=== PATIENT | male | born 1970 | race Caucasian/White ===

== ENCOUNTER 2022-08-07 19:18 | Observation (INO) | payer MEDICAID ==
[2022-08-07 19:49] LABS: Glucose,Whole Blood 100 mg/dL (70-110)
[2022-08-07 20:36] LABS: Albumin 4.3 g/dL (3.5-5.0); Calcium 9.3 mg/dL (8.4-10.2); Magnesium 2.1 mg/dL (1.6-2.3); Potassium 4.1 mmol/L (3.5-5.1); Total Bilirubin 0.8 mg/dL (0.2-1.3); Total Protein 7.1 g/dL (6.3-8.2)
[2022-08-07 20:45] LABS: INR 0.9 (<1.2); Partial Thromboplastin Time 21.2 sec (22.0-30.0)
[2022-08-07] MEDS ORDERED: NITROGLYCERIN OINT 1 INCH/GM PACKET TOPICAL STA (20:46)
[2022-08-07] MEDS ORDERED: SODIUM CHLORIDE 0.9% 1,000 ML IV STA (20:46)
[2022-08-07] MEDS ORDERED: SODIUM CHLORIDE 0.9% 1,000 ML IV ONE (20:46)
[2022-08-07 21:48] LABS: Basophils # (A) 0.1 k/uL (0-0.2); Basophils % (A) 1 %; Eosinophils # (A) 0.1 k/uL (0-0.7); Eosinophils % (A) 2 %; HCT 46.1 % (39.0-53.0); HGB 16.3 gm/dL (13.0-17.5); Lymphocytes % (A) 38 %; MCH 32.8 pg (25.0-35.0); MCHC 35.2 g/dL (31.0-37.0); MCV 93.1 fL (80.0-100.0); Mean Platelet Volume 9.5; Monocytes # (A) 0.5 k/uL (0-1.0); Monocytes % (A) 6 %; Neutrophils # (A) 4.1 k/uL (1.3-7.7); Neutrophils % (A) 51 %; Platelet Count 218 k/uL (150-450); RBC 4.96 m/uL (4.30-5.90); RDW 13.4 % (11.5-15.5)
--- NOTE | 2022-08-07 22:40 | XR ---
EXAMINATION TYPE: XR chest 1V DATE OF EXAM: 08/07/2022 COMPARISON: NONE HISTORY: Chest pain TECHNIQUE: Single view FINDINGS: Heart and mediastinum are normal. Lungs are clear. Diaphragm is normal. Bony thorax is inta ct. There are chest leads. IMPRESSION: Normal chest. Normal heart
[2022-08-07] MEDS ORDERED: NITROGLYCERIN SL TABS 0.4 MG TAB SUBLINGUAL PRN (22:55)
[2022-08-07] MEDS ORDERED: HEPARIN SODIUM 1,000 UN/ML (10ML VL) IV ONE (22:55)
[2022-08-07] MEDS ORDERED: fentaNYL (PF) 50 MCG/ML 2 ML AMP IVP PRN (22:57)
[2022-08-07] MEDS ORDERED: fentaNYL (PF) 50 MCG/ML 2 ML AMP IV STA (22:57)
--- NOTE | 2022-08-07 22:58 | ED ---
Chest Pain HPI - General Chief Complaint: Chest Pain Stated Complaint: Chest Pain Time Seen by Provider: 08/07/22 20:42 Source: patient Mode of arrival: ambulatory Limitations: no limitations - History of Present Illness Initial Comments: This patient is a 52-year-old man who presents with intermittent chest pains of been coming and going over the past week. He states there may be some exertional component. The pain is in the left lower chest. He has occasionally had pain to the neck. There has been some occasional diaphoresis. Patient took nitroglycerin today without change in the pain. Patient also did take aspirin. MD Complaint: chest pain -: days(s) Onset: during rest Pain Location: left chest Pain Radiation: neck, jaw/teeth Severity: moderate Quality: aching Consistency: intermittent Improves With: nothing Worsens With: nothing Treatments Prior to Arrival: aspirin, nitroglycerin - Related Data Home Medications Medication Instructions Recorded Confirmed Ascorbic Acid [Vitamin C] 1,000 mg PO DAILY 08/07/22 08/07/22 Aspirin EC [Ecotrin Low Dose] 81 mg PO DAILY 08/07/22 08/07/22 Multivit-Mins/Iron/Folic/Lycop 1 tab PO DAILY 08/07/22 08/07/22 [Centrum Men's Tablet] Nitroglycerin Sl Tab 0.3mg 0.3 mg SUBLINGUAL Q5M PRN 08/07/22 08/07/22 Allergies Allergy/AdvReac Type Severity Reaction Status Date / Time No Known Allergies Allergy Verified 08/07/22 20:20 Review of Systems ROS Statement: Those systems with pertinent positive or pertinent negative responses have been documented in the HPI. ROS Other: All systems not noted in ROS Statement are negative. Constitutional: Denies: fever, chills Respiratory: Denies: cough, dyspnea Cardiovascular: Reports: chest pain. Denies: palpitations, orthopnea, edema, syncope Gastrointestinal: Denies: abdominal pain, nausea, vomiting, diarrhea Genitourinary: Denies: dysuria, hematuria Musculoskeletal: Denies: back pain Skin: Denies: rash Neurological: Denies: headache, weakness EKG Findings - EKG Comments: EKG Findings:: Possible old inferior CO - EKG Results: EKG: interpreted by ERMD, sinus rhythm, normal axis, normal ST/T EKG shows: bradycardia (Rate 50 bpm) Past Medical History Additional Past Medical History / Comment(s): diverticulitis History of Any Multi-Drug Resistant Organisms: None Reported Past Surgical History: Orthopedic Surgery Additional Past Surgical History / Comment(s): knee Past Psychological History: No Psychological Hx Reported Smoking Status: Never smoker Past Alcohol Use History: None Reported Past Drug Use History: Marijuana General Exam Limitations: no limitations General appearance: alert, in no apparent distress Head exam: Present: atraumatic, normocephalic Eye exam: Present: normal appearance. Absent: scleral icterus, conjunctival injection Neck exam: Present: normal inspection Respiratory exam: Present: normal lung sounds bilaterally. Absent: respiratory distress, wheezes, rales, rhonchi, stridor Cardiovascular Exam: Present: regular rate, normal rhythm, normal heart sounds. Absent: systolic murmur, diastolic murmur, rubs, gallop GI/Abdominal exam: Present: soft. Absent: distended, tenderness, guarding, rebound, rigid, mass Extremities exam: Present: normal inspection, normal capillary refill. Absent: pedal edema, calf tenderness Back exam: Present: normal inspection. Absent: CVA tenderness (R), CVA tenderness (L) Neurological exam: Present: alert Skin exam: Present: warm, dry, intact, normal color. Absent: rash Course Vital Signs 08/07/22 08/07/22 08/07/22 19:20 20:32 21:54 Temperature 98.2 F Pulse Rate 75 35 L 55 L Respiratory 20 16 18 Rate Blood Pressure 148/91 83/67 132/89 O2 Sat by Pulse 99 100 97 Oximetry 08/07/22 23:38 Temperature Pulse Rate 65 Respiratory 18 Rate Blood Pressure O2 Sat by Pulse 98 Oximetry Disposition Clinical Impression: Chest pain Disposition: ADMITTED IP TO THIS HOSP Condition: Fair Is patient prescribed a controlled substance at d/c from ED?: No
[2022-08-07] MEDS ORDERED: HEPARIN SOD,PORK IN 0.45% NACL 25,000 UNIT in 0.45% NACL 1 250ML.BAG IV SCH (23:00)
[2022-08-08 07:27] VITALS: RESP 15
[2022-08-08] MEDS ORDERED: ACETAMINOPHEN TAB 325 MG TAB PO PRN (08:00)
[2022-08-08] MEDS ORDERED: ASPIRIN 81 MG PO STA (08:01)
[2022-08-08] MEDS ORDERED: ATORVASTATIN 40 MG TAB PO SCH (09:00)
[2022-08-08] MEDS ORDERED: ASPIRIN 325 MG TAB PO SCH (09:00)
[2022-08-08 09:49] VITALS: PULSE 53
[2022-08-08 09:58] LABS: Chol/HDL Ratio 4.11 Ratio; VLDL Calculation 9.08 mg/dL (5.00-40.00)
--- NOTE | 2022-08-08 11:10 | P.CRDCN ---
History of Present Illness Consult date: 08/08/22 Consult reason: chest pain History of present illness: History of present illness: This is a 52-year-old with no previous cardiac history, does not follow with a [employer] e[employer] consultant., Past medical history of hyperlipidemia, diverticulitis. We have been asked to evaluate the patient for chest pain. Patient states that he had a physical done and was found to have an abnormal EKG and also has been having chest pain on the left breast area. He states that the pain does not worsen with activity like walking and is no tenderness to the chest wall. But he did experience some nausea and sweats. Regarding cholesterol, he states that it was high and he's been following a high protein diet and has lost 24 pounds over the past 3 months. He is also very active and exercises on a regular basis, he run/walk on the treadmill for 2 miles 5 days per week. He has family medical history mom at age 53 from a myocardial infarction. Patient is complaining of headache and he has tarted on Nitropaste. Noted the patient's creatinine is 1.37 and patient denies history of renal disease. EKG abnormal T waves Chest x-ray: Normal CBC within normal limits. INR 0.9. D-dimer 0.46. Sodium 138, potassium 4.1, BUN 27 creatinine 1.37. Troponin negative 3 draws. Magnesium 2.1. Liver function tests are normal. Triglycerides 45, cholesterol 197, LDL 140, HDL 47.9. Home cardiac medications: None Review Of Systems: At the time of my evaluation: Constitutional: No fever, no chills. No weakness, fatigue or lethargy. EENT: No headache. No dizziness. Lungs: No shortness of breath, cough, no sputum production. No wheezing. Cardiovascular: Reports lower left sided chest pain, no lower extremity edema. No palpitations. No paroxysmal nocturnal dyspnea. No orthopnea. No lightheadedness or dizziness. No syncopal episodes. Abdominal: No abdominal pain. No nausea, vomiting. No diarrhea. No constipation. No bloody or tarry stools. Genitourinary: No dysuria.. No urinary retention. Musculoskeletal: No myalgias. No muscle weakness, no frequent falls. No back pain. No neck pain. Integumentary: No wounds. No rash. No unusual bruising. Neurologic: No aphasia. No facial droop. No change in mentation. No head injury. No headache. Physical examination: Gen: This is a 52-year-old male. He is resting in bed and appears to be comfortable and in no acute distress VS: reviewed HEENT: Head is atraumatic, normocephalic. Pupils equal, round. Sclerae is anicteric. NECK: Supple. No JVD. . LUNGS: Clear to auscultation. No wheezes or rhonchi. No intercostal retractions. HEART: Regular rate and rhythm. No murmur. ABDOMEN: Soft No tenderness. EXTREMITIES: No pedal edema. No calf tenderness. NEUROLOGICAL: Patient is awake, alert and oriented x3. Assessment: Chest pain, acute coronary syndrome ruled out T-wave abnormality on EKG Elevated liver function test possibly related to protein drinks patient has been taking for weight loss Family history of coronary artery disease with mom passing at age 53 from an [place] Hyperlipidemia Diverticulitis Plan: Obtain stress echocardiogram Obtain 2-D echocardiogram and Doppler study to assess cardiac structure and function Patient started on atorvastatin 40 mg daily--to be continued at discharge, prescription has been sent to his pharmacy Discontinue Nitropaste If stress test and echocardiogram are within normal limits, patient is cleared for discharge from cardiology and may follow-up in the office with Dr. Crabtree in 2 weeks. Thank you kindly for this consultation. Nurse practitioner note has been reviewed, I agree with documented findings and plan of care. Patient was seen and examined. Past Medical History Additional Past Medical History / Comment(s): diverticulitis History of Any Multi-Drug Resistant Organisms: None Reported Past Surgical History: Orthopedic Surgery Additional Past Surgical History / Comment(s): knee Past Psychological History: No Psychological Hx Reported Smoking Status: Never smoker Past Alcohol Use History: None Reported Past Drug Use History: Marijuana Medications and Allergies Home Medications Medication Instructions Recorded Confirmed Type Ascorbic Acid [Vitamin C] 1,000 mg PO DAILY 08/07/22 08/07/22 History Multivit-Mins/Iron/Folic/Lycop 1 tab PO DAILY 08/07/22 08/07/22 History [Centrum Men's Tablet] Atorvastatin [Lipitor] 40 mg PO DAILY #90 tab 08/08/22 Rx Allergies Allergy/AdvReac Type Severity Reaction Status Date / Time No Known Allergies Allergy Verified 08/07/22 20:20 Physical Exam Vitals: Vital Signs Temp Pulse Pulse Resp BP BP Pulse Ox 08/08/22 04:00 70 18 129/77 95 08/08/22 01:29 57 L 18 124/77 98 08/08/22 01:28 57 L 18 124/77 98 08/08/22 01:01 98.2 F 61 16 127/85 98 08/07/22 23:38 65 18 98 08/07/22 21:54 55 L 18 132/89 97 08/07/22 20:32 35 L 16 83/67 100 08/07/22 19:20 98.2 F 75 20 148/91 99 Intake and Output 08/07/22 08/08/22 08/08/22 22:59 06:59 14:59 Other: Weight 92.079 kg 92.079 kg Results 08/07/22 19:28 08/07/22 19:28 Cardiac Enzymes 08/07/22 08/07/22 08/08/22 Range/Units 19:28 19:28 00:09 AST 29 (17-59) U/L Troponin I <0.012 <0.012 (0.000-0.034) ng/mL 08/08/22 Range/Units 02:25 AST (17-59) U/L Troponin I <0.012 (0.000-0.034) ng/mL Coagulation 08/07/22 08/08/22 Range/Units 19:28 05:18 PT 10.0 (9.0-12.0) sec APTT 21.2 L 41.1 H (22.0-30.0) sec CBC 08/07/22 Range/Units 19:28 WBC 8.0 (3.8-10.6) k/uL RBC 4.96 (4.30-5.90) m/uL Hgb 16.3 (13.0-17.5) gm/dL Hct 46.1 (39.0-53.0) % Plt Count 218 (150-450) k/uL Comprehensive Metabolic Panel 08/07/22 Range/Units 19:28 Sodium 138 (137-145) mmol/L Potassium 4.1 (3.5-5.1) mmol/L Chloride 108 H (98-107) mmol/L Carbon Dioxide 22 (22-30) mmol/L BUN 27 H (9-20) mg/dL Creatinine 1.37 H (0.66-1.25) mg/dL Glucose 100 H (74-99) mg/dL Calcium 9.3 (8.4-10.2) mg/dL AST 29 (17-59) U/L ALT 36 (4-49) U/L Alkaline Phosphatase 73 (38-126) U/L Total Protein 7.1 (6.3-8.2) g/dL Albumin 4.3 (3.5-5.0) g/dL Current Medications Generic Name Dose Route Start Last Admin Trade Name Freq PRN Reason Stop Dose Admin Aspirin 325 mg 08/08/22 09:00 Aspirin 325 Mg Tab PO DAILY [facility] Fentanyl Citrate 50 mcg 08/07/22 22:57 Fentanyl (Pf) 50 Mcg/Ml 2 Ml Amp IVP Q4HR PRN Severe Pain (Scale 7 to 10) Heparin Sodium/Sodium Chloride 250 mls @ 10.009 mls/hr 08/07/22 23:00 08/07/22 23:25 25,000 unit/ Sodium Chloride IV 10.87 units/kg/hr .Q24H LANEY 10.009 mls/hr Administration Protocol 10.87 UNITS/KG/HR Nitroglycerin 0.4 mg 08/07/22 22:55 Nitroglycerin Sl Tabs 0.4 Mg Tab SUBLINGUAL Q5M PRN Chest Pain Intake and Output 08/07/22 08/08/22 08/08/22 22:59 06:59 14:59 Other: Weight 92.079 kg 92.079 kg 08/07/22 19:28 08/07/22 19:28
[2022-08-08 12:04] VITALS: BP 120/85; TEMP 97.4
--- NOTE | 2022-08-08 13:33 | CA ---
Stress Echo Report Isaak Scott Age: 52 Gender: M : 1970 Exam Date: 08/08/2022 10:03 Exam Location: [place] [facility] Ht (in): 71 Wt (lb): 203 Ordering Physician: Diandra Duran Referring Physician: [id number] Double Reamer Operator: Ana Krishnan RDCS Technologist Procedure CPT: Indication: CP ICD-9 Codes: Rhythm: Patient History: ELEVATED CHOLESTEROL LEVELS, FAMILY HX OF HEART DISEASE Cardiac Medications: Medications in past 24 hours: Contrast: Stress Results Protocol: Lauro Total dose(mL): Exercise Duration (min:sec): 12:[address] Depression (mm): Angina Score: Robles Score: METS: 12.1 Resting HR: 70 Resting BP: 131 / 59 Peak HR: 163 Peak BP: 180 / 77 Max Predicted HR: 166 98 % Max Predicted HR Target HR: 141 Double Product: [id number] Stress Summary: BP Response: Reason for Termination: MAX EXERTION/TARGET HR Cardiac Symptoms: NO SYMPTOMS ECG Analysis Resting ECG: Stress ECG: Arrhythmia: Echo Analysis Resting Echo: Peak Echo Analysis: MEASUREMENTS (Male/Female) Normal Values CONCLUSIONS Patient underwent exercise stress echo with a Lauro protocol treadmill stress test. Patient exercised into Stage 4 for a total of 12 minutes reaching a total of 12.1 METS. Patient's maximum heart rate was 163 which represented 98% age-predicted maximum heart rate. Stress EKG portion: At baseline patient's EKG showed normal sinus rhythm, normal axis, no significant ST or T wave abnormalities. At peak exercise, EKG showed no significant change from baseline. Stress echo portion: 2-D echocardiogram was performed in the parasternal long, personal short, apical 2 and apical four-chamber views at rest, peak exercise and in recovery. At baseline, echocardiogram showed left ventricular ejection fraction 55 % without wall motion abnormalities. With peak exercise, echocardiogram shows improvement in left ventricular ejection fraction, increase contractility, decrease in left ventricular end systolic dimension without wall motion abnormalities consistent with a normal response to exercise. Conclusions: 1. Normal EKG and echo response to exercise without evidence of inducible ischemia. 2. Excellent exercise capacity. Dr. Robles Bernard DO (Electronically Signed) Final Date: 08 August 2022 13:32
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
--- NOTE | 2022-08-09 13:30 | CA ---
Transthoracic Echo Report Name: Isaak Scott Age: 52 Gender: M : 1970 Exam Date: 08/08/2022 10:30 Exam Location: [place] [facility] Ht (in): 71 Wt (lb): 203 Ordering Physician: Diandra Duran Attending/Referring Phys: [id number], Rachely Engine Lathe Set Up Operator Ana Krishnan, QING Procedure CPT: Indications: LVF Cardiac Hx: Technical Quality: Good Contrast 1: Total Dose (mL): Contrast 2: Total Dose (mL): MEASUREMENTS (Male / Female) Normal Values 2D ECHO LV Diastolic Diameter PLAX 5.0 cm 4.2 - 5.9 / 3.9 - 5.3 cm LV Systolic Diameter PLAX 3.2 cm IVS Diastolic Thickness 0.9 cm 0.6 - 1.0 / 0.6 - 0.9 cm LVPW Diastolic Thickness 0.9 cm 0.6 - 1.0 / 0.6 - 0.9 cm LV Relative Wall Thickness 0.4 RV Internal Dim ED PLAX 3.2 cm LA Systolic Diameter LX 3.5 cm 3.0 - 4.0 / 2.7 - 3.8 cm LV Diastolic Volume MOD BP 82.9 cm??? 67 - 155 / 56 - 104 cm??? LV Systolic Volume MOD BP 31.9 cm??? 22 - 58 / 19 - 49 cm??? LV Ejection Fraction MOD BP 61.6 % >= 55 % LV Diastolic Volume MOD 4C 88.7 cm??? LV Systolic Volume MOD 4C 36.2 cm??? LV Ejection Fraction MOD 4C 59.2 % LV Diastolic Length 4C 8.3 cm LV Systolic Length 4C 6.0 cm LV Diastolic Volume MOD 2C 71.3 cm??? LV Systolic Volume MOD 2C 28.8 cm??? LV Ejection Fraction MOD 2C 59.6 % LV Diastolic Length 2C 7.6 cm LV Systolic Length 2C 6.3 cm LA Volume 42.3 cm??? 18 - 58 / 22 - 52 cm??? M-MODE Aortic Root Diameter MM 4.1 cm MV E Point Septal Separation 0.7 cm AV Cusp Separation MM 2.4 cm DOPPLER AV Peak Velocity 116.9 cm/s AV Peak Gradient 5.5 mmHg MV Area PHT 3.2 cm??? Mitral E Point Velocity 69.0 cm/s Mitral A Point Velocity 57.1 cm/s Mitral E to A Ratio 1.2 MV Deceleration Time 236.3 ms MV E' Velocity 8.3 cm/s Mitral E to MV E' Ratio 8.3 TR Peak Velocity 258.8 cm/s TR Peak Gradient 26.8 mmHg Right Ventricular Systolic Press 31.4 mmHg FINDINGS Left Ventricle Left ventricular ejection fraction is estimated at 55-60 %. Left ventricular cavity size normal. Left ventricular wall thickness normal. No obvious regional wall motion abnormalities. Right Ventricle Normal right ventricular size and function. Right ventricular systolic pressure within normal limits. Right Atrium Normal right atrial size. Left Atrium Normal left atrial size. Mitral Valve Structurally normal mitral valve. No evidence for mitral valve prolapse. No mitral stenosis. Trace mitral regurgitation. Aortic Valve Trileaflet aortic valve. No aortic valve stenosis or regurgitation. Tricuspid Valve Structurally normal tricuspid valve. Mild tricuspid regurgitation. Pulmonic Valve Structurally normal pulmonic valve. Trace pulmonic regurgitation. Pericardium Normal pericardium. No pericardial effusion. Aorta Mild aortic dilatation at the level of the sinuses of valsalva 41 mm CONCLUSIONS Left ventricular ejection fraction 55-60% RVSP 31 Trace mitral regurgitation Mild tricuspid regurgitation No pericardial effusion Mild aortic root dilation 4.1 cm Previewed by: Dr. Robles Bernard DO (Electronically Signed) Final Date: 09 August 2022 13:29
== END 2022-08-08 18:10 | disposition home or self-care (01) ==
LOC: EC 19:18 → INTOOBSV 22:55 → 3SCARD 22:55
PROVIDERS: ADMIT Family Medicine; ATTEND Family Medicine
DX: R07.89 Other chest pain (principal); R94.31 Abnormal electrocardiogram [ECG] [EKG]; R51.9 Headache, unspecified; K57.92 Diverticulitis of intestine, part unspecified, without perforation or abscess without bleeding; R79.89 Other specified abnormal findings of blood chemistry; E78.00 Pure hypercholesterolemia, unspecified; N18.30 Chronic kidney disease, stage 3 unspecified; F12.90 Cannabis use, unspecified, uncomplicated; E66.9 Obesity, unspecified; Z79.82 Long term (current) use of aspirin; Z79.899 Other long term (current) drug therapy; Z82.49 Family history of ischemic heart disease and other diseases of the circulatory system
CPT/HCPCS: 96366 ×2; 96376; 96365; 96375; 99285; 36415; 94760; 93005; 93306; 93351; 85379; 80061; 80053; 83735; 84484 ×2; 85025; 85610; 85730 ×2; 71045; G0378 ×2; J3010; J1644 ×2

== ENCOUNTER 2023-01-03 09:35 | Day surgery (SDC) | payer MEDICAID ==
[2023-01-02 10:24] VITALS: BMI 27.8
[2023-01-03 09:51] VITALS: RESP 16; TEMP 97.5
[2023-01-03] MEDS: LACTATED RINGERS 1,000 ML IV SCH ×2 (09:54→11:50)
[2023-01-03] MEDS ORDERED: PROPOFOL 10 MG/ML 20 ML VIAL IV ONE (11:52)
[2023-01-03] MEDS ORDERED: GLYCOPYRROLATE 0.2 MG/ML 2 ML VIAL ONE (11:52)
[2023-01-03] MEDS ORDERED: LIDOCAINE 2% INJ 20 MG/ML (2 ML VIAL) ONE (11:52)
--- NOTE | 2023-01-03 12:09 | P.PCN ---
Date of Procedure: 01/03/23 Procedure(s) Performed: BRIEF HISTORY: Patient is a 52-year-old pleasant white male scheduled for an elective colonoscopy as a part of screening for colon cancer/positive cologuard. PROCEDURE PERFORMED: Colonoscopy. PREOPERATIVE DIAGNOSIS: Screening for colon cancer/positive cologuard. IV sedation per Anesthesia. PROCEDURE: After informed consent was obtained, the patient, was brought into the endoscopy unit. IV sedation was administered by Anesthesia under continuous monitoring. Digital rectal examination was normal. Initially the Olympus CF-160 flexible video colonoscope was then inserted in the rectum, gradually advanced into the cecum without any difficulty. Careful examination was performed as the scope was gradually being withdrawn. Ileocecal valve and the appendiceal orifice were visualized and appeared normal. Prep was excellent. Mucosa of the cecum, ascending colon, transverse colon, descending colon, sigmoid colon, and rectum appeared normal. Scattered sigmoid diverticulosis Retroflexion was performed in the rectum and weight 2 internal hemorrhoids were seen. The patient tolerated the procedure well. IMPRESSION: Normal-appearing colon from rectum to cecum with no evidence of colorectal neoplasia Scattered sigmoid diverticulosis Grade 2 internal hemorrhoids . RECOMMENDATIONS: Findings of this examination were discussed with the patient well as his family.. He was advised to have a repeat screening colonoscopy in 10 years.
[2023-01-03 12:33] VITALS: BP 129/88; PULSE 59
== END 2023-01-03 13:13 | disposition home or self-care (01) ==
LOC: ORWHC2ENDO 09:35
PROVIDERS: ATTEND Internal Medicine Gastroenterology
DX: Z12.11 Encounter for screening for malignant neoplasm of colon (principal); K57.30 Diverticulosis of large intestine without perforation or abscess without bleeding; K64.1 Second degree hemorrhoids; E78.5 Hyperlipidemia, unspecified; G47.33 Obstructive sleep apnea (adult) (pediatric); K21.9 Gastro-esophageal reflux disease without esophagitis; Z79.899 Other long term (current) drug therapy
CPT/HCPCS: 45378; J2001; J2704